=== PATIENT | female | born 1930 | race Hispanic/Latino ===

== ENCOUNTER 2020-09-02 14:20 | Emergency (ER) | payer MEDICARE, MEDICAID ==
[~2020-09-02] VITALS: Ht 147.3 cm; Wt 70.9 kg
[2020-09-02] MEDS ORDERED: RISP0.5T21 PO (14:49)
[2020-09-02] MEDS ORDERED: MIRA3350 PO (14:49)
[2020-09-02] MEDS ORDERED: METO25TA4 PO (14:49)
[2020-09-02] MEDS ORDERED: JANU25TA PO (14:49)
[2020-09-02] MEDS ORDERED: ASPI81CH33 PO (14:49)
[2020-09-02] MEDS ORDERED: FOLI1TAB11 PO (14:49)
[2020-09-02] MEDS ORDERED: LIPI20TA PO (14:49)
[2020-09-02] MEDS ORDERED: RANO500T7 PO (14:49)
[2020-09-02] MEDS ORDERED: D3 +TAB PO (14:49)
[2020-09-02] MEDS ORDERED: LACT20EL PO (14:49)
[2020-09-02] MEDS ORDERED: NIFE1TAB51 PO (14:49)
[2020-09-02] MEDS ORDERED: LEVO88TA3 PO (14:49)
[2020-09-02] MEDS ORDERED: ALBU83IN NEB (14:50)
[2020-09-02] MEDS ORDERED: IPRA2IN NEB (14:50)
--- NOTE | 2020-09-02 15:32 | REP ---
INDICATION: trauma. COMPARISON: None. TECHNIQUE: Three views. FINDINGS: There is diffuse osteopenia. The left glenohumeral and acromioclavicular joints are normally aligned. No fracture or subluxation is seen. Periarticular soft tissues are unremarkable. The thoracic aorta is calcific and tortuous. No left rib fracture or lesion is seen. IMPRESSION: Diffuse osteopenia. No acute abnormality. <Electronically signed by Richie Tran > 09/02/20 [id number]
--- NOTE | 2020-09-02 15:33 | REP ---
INDICATION: trauma. COMPARISON: None. TECHNIQUE: Four views. FINDINGS: Four views of the left elbow demonstrate mild coronoid process spurring. Bones, joints and soft tissues are otherwise unremarkable. There is no evidence of fracture, subluxation, or joint effusion.. . No opaque foreign body noted. IMPRESSION: Mild coronoid process spurring. Otherwise negative left elbow. No fracture seen.. <Electronically signed by Richie Tran > 09/02/20 [id number]
--- NOTE | 2020-09-02 15:34 | REP ---
INDICATION: trauma. COMPARISON: None. TECHNIQUE: Left ribs four views. Single AP view of the chest, patient supine. FINDINGS: Left ribs: There is no rib fracture or other rib abnormality. PA chest: There is no pneumothorax, hemothorax or pulmonary contusion. The lung vogel are clear. The cardiac size is normal. The martin, mediastinum, and skeletal structures are unremarkable. IMPRESSION: Negative left rib series Negative AP chest, patient supine. <Electronically signed by Cole Navarrete > 09/02/20 [id number]
[2020-09-02] MEDS ORDERED: ACETAMINOPHEN TAB 650MG DOSE (2X325MG) PO ONE (16:30)
[2020-09-02 17:02] VITALS: BP 132/76
== END 2020-09-02 17:15 | disposition home or self-care (01) ==
LOC: M ED 14:20
DX: T14.8XXA Other injury of unspecified body region, initial encounter (principal); W19.XXXA Unspecified fall, initial encounter; Y92.099 Unspecified place in other non-institutional residence as the place of occurrence of the external cause; Y93.9 Activity, unspecified; Y99.9 Unspecified external cause status; E11.9 Type 2 diabetes mellitus without complications; I10 Essential (primary) hypertension; J44.9 Chronic obstructive pulmonary disease, unspecified; E78.5 Hyperlipidemia, unspecified; K59.00 Constipation, unspecified; F03.90 Unspecified dementia, unspecified severity, without behavioral disturbance, psychotic disturbance, mood disturbance, and anxiety; Z79.82 Long term (current) use of aspirin; Z79.899 Other long term (current) drug therapy; Z88.0 Allergy status to penicillin

== ENCOUNTER 2021-01-06 11:53 | Emergency (ER) | payer MEDICARE, MEDICAID ==
[~2021-01-06] VITALS: Ht 147.3 cm; Wt 70.9 kg
[~2021-01-06 11:53] MED LIST: ALBU83IN NEB; ASPI81CH33 PO; D3 +TAB PO; FOLI1TAB11 PO; IPRA2IN NEB; JANU25TA PO; LACT20EL PO; LEVO88TA3 PO; LIPI20TA PO; METO25TA4 PO; MIRA3350 PO; NIFE1TAB51 PO; RANO500T7 PO; RISP0.5T21 PO
[2021-01-06] MEDS ORDERED: QUET25TA3 PO (12:36)
[2021-01-06] MEDS ORDERED: MORPHINE 2 MG/ML 1ML VIAL (J2270) IM ONE (15:05)
--- NOTE | 2021-01-06 15:34 | REP ---
INDICATION: trauma, frontal. COMPARISON: None. TECHNIQUE: Axial CT images with multiplanar reformations. FINDINGS: No acute bleed or fracture. Ventricles, cisterns and sulci are within normal limits. No mass effect or midline shift. No abnormal fluid collections. Paranasal sinuses and mastoid air cells are clear Age-related volume loss noted. IMPRESSION: No acute findings. <Electronically signed by Mitch Laughlin > 01/06/21 [id number]
--- NOTE | 2021-01-06 15:36 | REP ---
INDICATION: fall, trauma. COMPARISON: None. TECHNIQUE: Axial CT images with multiplanar reformations. FINDINGS: No evidence of fracture or malalignment. Prevertebral soft tissues within normal limits. There is no significant canal stenosis. No significant osseous foraminal narrowing noted. IMPRESSION: No acute findings. <Electronically signed by Mitch Laughlin > 01/06/21 [id number]
--- NOTE | 2021-01-06 15:45 | REP ---
INDICATION: trauma. COMPARISON: None. TECHNIQUE: Three views of the right humerus are obtained. FINDINGS: Three views of the right humerus demonstrate a anterior inferior glenohumeral dislocation. There is diffuse osteoporosis. Osteoarthritis is seen at the AC joint with narrowing and spur formation. No fracture is apparent.. . No opaque foreign body noted. IMPRESSION: Anterior inferior glenohumeral dislocation on the right. Osteopenia. AC joint osteoarthritis. No acute fracture visible.. <Electronically signed by Richie Tran > 01/06/21 [id number]
--- NOTE | 2021-01-06 15:47 | REP ---
INDICATION: trauma. COMPARISON: None. TECHNIQUE: AP and tube angled views of the right clavicle are obtained. FINDINGS: There is an anterior inferior right glenohumeral dislocation. No observable fracture is seen. The clavicle appears intact. There is osteoarthritic hypertrophy at the AC joint. There is diffuse osteopenia. IMPRESSION: Anterior inferior glenohumeral dislocation on the right. Diffuse osteopenia. No acute fracture is seen. AC joint osteoarthritis. <Electronically signed by Richie Tran > 01/06/21 [id number]
[2021-01-06] MEDS ORDERED: NS 500 ML IV ONE (16:20)
[2021-01-06] MEDS ORDERED: NS 1,000 ML IV SCH ×2 (16:20)
[2021-01-06] MEDS ORDERED: propofoL 200 MG/20 ML VIAL IV PRN (16:20)
[2021-01-06] MEDS: propofoL 200 MG/20 ML VIAL IV PRN ×3 (16:59→17:03)
--- NOTE | 2021-01-06 17:46 | REP ---
INDICATION: post reduction of right shoulder. COMPARISON: Comparison is made with earlier humerus radiographs and clavicle radiographs demonstrating and anterior inferior glenohumeral dislocation.. TECHNIQUE: AP and tangential scapular views are presented. FINDINGS: Current right shoulder views demonstrate normal alignment of the glenohumeral and acromioclavicular joints. There is diffuse osteoporosis. No fracture is seen. IMPRESSION: Right glenohumeral joint is reduced. No fracture is seen. <Electronically signed by Richie Tran > 01/06/21 [id number]
[2021-01-06 18:15] VITALS: BP 171/90
== END 2021-01-06 18:38 | disposition home or self-care (01) ==
LOC: M ED 11:53 → EDBD 11:53 → M ED 18:38
DX: S43.004A Unspecified dislocation of right shoulder joint, initial encounter (principal); W18.40XA Slipping, tripping and stumbling without falling, unspecified, initial encounter; Y92.009 Unspecified place in unspecified non-institutional (private) residence as the place of occurrence of the external cause; Y93.89 Activity, other specified; Y99.9 Unspecified external cause status; F03.90 Unspecified dementia, unspecified severity, without behavioral disturbance, psychotic disturbance, mood disturbance, and anxiety; I25.10 Atherosclerotic heart disease of native coronary artery without angina pectoris; I10 Essential (primary) hypertension; Z85.528 Personal history of other malignant neoplasm of kidney; Z85.51 Personal history of malignant neoplasm of bladder; E11.9 Type 2 diabetes mellitus without complications; E03.9 Hypothyroidism, unspecified; M85.821 Other specified disorders of bone density and structure, right upper arm; M19.011 Primary osteoarthritis, right shoulder; Z79.82 Long term (current) use of aspirin; Z79.899 Other long term (current) drug therapy; Z88.0 Allergy status to penicillin
CPT/HCPCS: 23655; 70450; 72125; 73000; 73020; 73060; 96372; 99285; J2270

== ENCOUNTER → 2021-01-10 | Outpatient (CLI) | payer MEDICARE, MEDICAID ==
[~2021-01-10] MED LIST changes: +QUET25TA3 PO
--- NOTE | 2021-01-10 14:39 | REP ---
INDICATION: DISLOCATION. COMPARISON: 01/06/2021 TECHNIQUE: Single axillary view of the right shoulder FINDINGS: Age-related osteopenia and arthritic changes are appreciated. There is no evidence for dislocation or obvious fracture. IMPRESSION: Osteopenia and degenerative changes. No evidence for dislocation. No fracture. <Electronically signed by Onofre Gomez > 01/10/21 [id number]
== END ==
LOC: M SOG 13:27
PROVIDERS: ATTEND Orthopaedic Surgery Sports Medicine
DX: M19.011 Primary osteoarthritis, right shoulder (principal); M85.811 Other specified disorders of bone density and structure, right shoulder

== ENCOUNTER 2021-02-15 14:30 | Outpatient (RCR) | payer MEDICARE, MEDICAID | END 2021-02-20 | LOC: M PT 14:30 | PROVIDERS: ATTEND Orthopaedic Surgery Sports Medicine | DX: M79.4 Hypertrophy of (infrapatellar) fat pad (principal) ==

== ENCOUNTER → 2021-02-21 | Outpatient (CLI) | payer MEDICARE, MEDICAID ==
--- NOTE | 2021-02-21 12:21 | REP ---
INDICATION: PAIN. COMPARISON: None. TECHNIQUE: AP, lateral, bilateral oblique, tunneled and sunrise views right knee FINDINGS: Age-related osteopenia and advanced tricompartmental osteoarthritic degenerative changes are appreciated including osteophytosis, chondrocalcinosis, and joint space narrowing. No acute fracture or dislocation. No obvious effusion. IMPRESSION: Osteopenia and advanced tricompartmental osteoarthritic degenerative changes. <Electronically signed by Onofre Gomez > 02/21/21 [id number]
== END ==
LOC: M SOG 10:52
PROVIDERS: ATTEND Orthopaedic Surgery Sports Medicine
DX: M17.11 Unilateral primary osteoarthritis, right knee (principal); M85.861 Other specified disorders of bone density and structure, right lower leg

== ENCOUNTER → 2021-03-22 | Outpatient (RCR) | payer MEDICARE, MEDICAID | LOC: M PT 02-22 13:26 → M OT 02-22 13:45 → M PT 03-02 13:00 → M OT 03-07 10:24 → M PT 03-07 10:25 → M OT 03-14 10:19 → M PT 03-14 10:20 → M OT 03-16 10:30 → M PT 03-16 11:00 → M OT 10:27 | PROVIDERS: ATTEND Orthopaedic Surgery Sports Medicine | DX: M79.4 Hypertrophy of (infrapatellar) fat pad (principal) ==

== ENCOUNTER → 2021-04-24 | Outpatient (CLI) | payer MEDICARE, MEDICAID ==
--- NOTE | 2021-04-24 14:18 | REP ---
INDICATION: PAIN IN LEFT KNEE. COMPARISON: Right knee x-ray, 02/21/2021. Left knee x-ray, same day. TECHNIQUE: Standing AP view both knees was obtained. FINDINGS: There is moderate arthritis of the medial joint space compartment of both knees. There is mild arthritis of the lateral joint space compartments of both knees. There is chondrocalcinosis of the medial and lateral menisci, bilaterally. IMPRESSION: 1. Arthritis of the medial and lateral joint space compartments of both knees, as described. 2. 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 <Electronically signed by Jonathan Mooney > 04/24/21 [id number]
--- NOTE | 2021-04-24 14:21 | REP ---
INDICATION: PAIN. COMPARISON: Standing frontal view of both knees, same day. TECHNIQUE: Lateral and sunrise views of the left knee were obtained. FINDINGS: Images are reviewed along with the standing frontal view of both knees, performed the same day. There is moderate arthritis of the medial joint space compartment of the knee. There is mild arthritis of the patellofemoral joint and the lateral joint space compartment of the knee. There is no knee joint effusion. There is enthesopathy of the patella. There are vascular calcifications in the distal thigh and proximal calf. IMPRESSION: 1. Mild to moderate tricompartment arthritis without knee joint effusion. 2. Enthesopathy of the patella. 3. Vascular calcifications. <Electronically signed by Jonathan Mooney > 04/24/21 [id number]
== END ==
LOC: M SOG 13:28
PROVIDERS: ATTEND Orthopaedic Surgery Adult Reconstructive Orthopaedic Surgery
DX: M25.562 Pain in left knee (principal)

== ENCOUNTER 2021-09-03 21:05 | Inpatient (IN) | payer MEDICARE, MEDICAID ==
[~2021-09-03] VITALS: Ht 149.9 cm; Wt 72.0 kg
[~2021-09-03 21:05] MED LIST changes: +QUET1TAB17 PO; -QUET25TA3 PO
[2021-09-03] MEDS ORDERED: METOPROLOL TART 25 MG TABLET PO ONE (22:15)
[2021-09-03 22:59] LABS: BASO % 0.3 % (0.0-1.0); EOS # 0.1 10^3/uL (0.0-0.5); EOS % 1.8 % (0.0-3.0); HEMATOCRIT 34.8 % (36.0-47.0); HEMOGLOBIN 11.6 g/dl (12.0-15.5); LYMPH # 1.8 10^3/uL (1.5-5.0); LYMPH % 29.5 % (24.0-44.0); MEAN CORPUSCULAR HEMOGLOBIN 31.8 pg (27.0-33.0); MEAN CORPUSCULAR HGB CONC 33.3 g/dl (32.0-36.5); MEAN CORPUSCULAR VOLUME 95.3 fl (80.0-96.0); MONO # 0.6 10^3/uL (0.0-0.8); NEUTROPHILS # 3.6 10^3/uL (1.5-8.5); NEUTROPHILS % 59.1 % (36.0-66.0); PLATELET COUNT, AUTOMATED 237 10^3/uL (150-450); RED BLOOD COUNT 3.65 10^6/uL (4.00-5.40); WHITE BLOOD COUNT 6.1 10^3/uL (4.0-10.0)
[2021-09-03 23:31] LABS: ALBUMIN 3.6 GM/DL (3.2-5.2); BILIRUBIN,DIRECT 0.1 MG/DL (0.0-0.2); BILIRUBIN,TOTAL 0.3 MG/DL (0.2-1.0); CALCIUM LEVEL 9.2 MG/DL (8.8-10.2); CREATININE FOR GFR 2.45 MG/DL (0.55-1.30); FREE T4 1.22 NG/DL (0.76-1.46); GLOMERULAR FILTRATION RATE 19.8 (>32); POTASSIUM SERUM 4.6 MEQ/L (3.5-5.1); THYROID STIMULATING HORMONE 0.668 uIU/ML (0.358-3.740); TOTAL PROTEIN 6.6 GM/DL (6.4-8.2)
[2021-09-03 23:34] LABS: CK-MB VALUE MASS 1.1 NG/ML (<3.6); MB/CK RELATIVE INDEX 1.53 (< OR =4)
[2021-09-03] MEDS ORDERED: LABETALOL 100MG/20ML VIAL IV STA (23:40)
[2021-09-03] MEDS ORDERED: ASPIRIN 81 MG CHEW TABLET PO ONE (23:45)
[2021-09-03] MEDS ORDERED: HEPARIN SOD (PORCINE) 5000UNITS/ML 1ML VIAL/SYRINGE IV ONE (23:50)
[2021-09-03] MEDS ORDERED: CLOPIDOGREL 300 MG TAB (PLAVIX) PO ONE (23:50)
[2021-09-03] MEDS ORDERED: HEPARIN DRIP 25,000 UNITS in IV 1 EA IV SCH (23:50)
[2021-09-04 00:53] LABS: INR 1.02; PROTHROMBIN TIME 13.8 SECONDS (12.7-14.5)
[2021-09-04 01:53] LABS: RSV AMPLIFICATION NEGATIVE (NEGATIVE)
[2021-09-04 02:07] LABS: CK-MB VALUE MASS 1.4 NG/ML (<3.6); MB/CK RELATIVE INDEX 2.46 (< OR =4)
[2021-09-04] MEDS ORDERED: CARVedilol 12.5 MG TAB PO ONE (02:35)
[2021-09-04] MEDS ORDERED: hydrALAZINE 20MG/ML 1ML VIAL (J0360 PER 20MG) IV ONE (02:45)
[2021-09-04] MEDS ORDERED: EQL50TAB2 PO (03:03)
[2021-09-04] MEDS ORDERED: NEXI20CA PO (03:03)
[2021-09-04] MEDS ORDERED: ASPI81TA26 PO (03:03)
[2021-09-04] MEDS ORDERED: QUET50TA4 PO (03:03)
[2021-09-04] MEDS ORDERED: MELA5CAP2 PO (03:03)
[2021-09-04] MEDS ORDERED: NIFE30TA50 PO (03:03)
[2021-09-04] MEDS ORDERED: HOME MED LIST COMPLETE! XX SCH (03:05)
[2021-09-04] MEDS ORDERED: MOM 30ML SUSPENSION UDC PO PRN (03:55)
[2021-09-04] MEDS ORDERED: MAALOX 30 ML SUSP *UDC PO PRN (03:55)
[2021-09-04] MEDS ORDERED: HEPARIN SOD (PORCINE) 5000UNITS/ML 1ML VIAL/SYRINGE IV PRN (03:55)
[2021-09-04] MEDS ORDERED: HEPARIN DRIP 25,000 UNITS in IV 1 EA IV SCH (04:00)
[2021-09-04] MEDS ORDERED: ALBUTEROL SULFATE 2.5 MG/0.5 ML INH NEB SOLN NEB PRN (05:15)
[2021-09-04] MEDS ORDERED: IPRATROPIUM 0.02% SOLN 0.5MG 2.5ML NEB NEB PRN (05:15)
[2021-09-04 06:00] LABS: BASO % 0.4 % (0.0-1.0); EOS # 0.1 10^3/uL (0.0-0.5); EOS % 1.9 % (0.0-3.0); HEMATOCRIT 32.7 % (36.0-47.0); HEMOGLOBIN 10.9 g/dl (12.0-15.5); LYMPH # 2.9 10^3/uL (1.5-5.0); LYMPH % 42.1 % (24.0-44.0); MEAN CORPUSCULAR HEMOGLOBIN 31.6 pg (27.0-33.0); MEAN CORPUSCULAR HGB CONC 33.3 g/dl (32.0-36.5); MEAN CORPUSCULAR VOLUME 94.8 fl (80.0-96.0); MONO # 0.7 10^3/uL (0.0-0.8); MONO % 9.6 % (2.0-8.0); NEUTROPHILS # 3.2 10^3/uL (1.5-8.5); NEUTROPHILS % 45.6 % (36.0-66.0); PLATELET COUNT, AUTOMATED 239 10^3/uL (150-450); RED BLOOD COUNT 3.45 10^6/uL (4.00-5.40)
[2021-09-04] MEDS: LEVOTHYROXINE 88MCG TABLET (0.088 MG) PO SCH (06:08)
[2021-09-04 06:16] LABS: CK-MB VALUE MASS 1.7 NG/ML (<3.6); MB/CK RELATIVE INDEX 2.88 (< OR =4)
[2021-09-04 06:35] LABS: ALBUMIN 3.5 GM/DL (3.2-5.2); BILIRUBIN,TOTAL 0.4 MG/DL (0.2-1.0); CALCIUM LEVEL 9.3 MG/DL (8.8-10.2); CHOLESTEROL RISK RATIO 3.432 (<5); CREATININE FOR GFR 2.31 MG/DL (0.55-1.30); GLOMERULAR FILTRATION RATE 21.2 (>32); MAGNESIUM LEVEL 2.1 MG/DL (1.8-2.4); POTASSIUM SERUM 4.2 MEQ/L (3.5-5.1); TOTAL PROTEIN 6.1 GM/DL (6.4-8.2)
[2021-09-04] MEDS: NYSTATIN 100,000 UNITS/GM TOPICAL PWD 15 GM TOP SCH (09:00)
[2021-09-04] MEDS: CLOPIDOGREL 75 MG TAB PO SCH (09:20)
[2021-09-04] MEDS: ATORVASTATIN 20 MG TAB PO SCH (09:20)
[2021-09-04] MEDS: METOPROLOL TART 25 MG TABLET PO SCH ×2 (09:21→21:42)
[2021-09-04] MEDS: ASPIRIN 81 MG CHEW TABLET PO SCH (09:21)
[2021-09-04] MEDS: PANTOPRAZOLE 20 MG TAB PO SCH (09:22)
[2021-09-04] MEDS: NIFEdipine 30 MG XL TAB PO SCH (09:22)
[2021-09-04] MEDS ORDERED: hydrALAZINE 20MG/ML 1ML VIAL (J0360 PER 20MG) IV PRN (14:50)
[2021-09-04] MEDS ORDERED: RAMELTEON 8 MG TAB (ROZEREM) PO PRN (16:05)
[2021-09-04] MEDS ORDERED: LIDOCAINE 5% (LIDODERM) PATCH TD ONE (16:05)
[2021-09-04] MEDS ORDERED: **NOTE PATIENT COMMENT** MISC XX SCH (21:00)
[2021-09-04] MEDS: QUEtiapine FUMARATE 50MG TAB PO SCH (21:42)
[2021-09-05 05:38] LABS: BASO % 0.3 % (0.0-1.0); EOS # 0.2 10^3/uL (0.0-0.5); HEMATOCRIT 33.6 % (36.0-47.0); HEMOGLOBIN 11.1 g/dl (12.0-15.5); LYMPH # 2.9 10^3/uL (1.5-5.0); LYMPH % 36.1 % (24.0-44.0); MEAN CORPUSCULAR HEMOGLOBIN 31.1 pg (27.0-33.0); MEAN CORPUSCULAR VOLUME 94.1 fl (80.0-96.0); MONO # 0.5 10^3/uL (0.0-0.8); MONO % 6.7 % (2.0-8.0); NEUTROPHILS # 4.3 10^3/uL (1.5-8.5); NEUTROPHILS % 54.6 % (36.0-66.0); PLATELET COUNT, AUTOMATED 218 10^3/uL (150-450); RED BLOOD COUNT 3.57 10^6/uL (4.00-5.40); WHITE BLOOD COUNT 7.9 10^3/uL (4.0-10.0)
[2021-09-05] MEDS: LEVOTHYROXINE 88MCG TABLET (0.088 MG) PO SCH (06:00)
[2021-09-05 06:32] LABS: ALBUMIN 3.6 GM/DL (3.2-5.2); BILIRUBIN,TOTAL 0.4 MG/DL (0.2-1.0); CALCIUM LEVEL 9.1 MG/DL (8.8-10.2); CREATININE FOR GFR 2.61 MG/DL (0.55-1.30); GLOMERULAR FILTRATION RATE 18.4 (>32); MAGNESIUM LEVEL 2.1 MG/DL (1.8-2.4); POTASSIUM SERUM 4.2 MEQ/L (3.5-5.1); TOTAL PROTEIN 6.5 GM/DL (6.4-8.2)
[2021-09-05] MEDS ORDERED: hydrALAZINE 20MG/ML 1ML VIAL (J0360 PER 20MG) As Ordered ONE (06:33)
[2021-09-05] MEDS: ASPIRIN 81 MG CHEW TABLET PO SCH (08:38)
[2021-09-05] MEDS: CLOPIDOGREL 75 MG TAB PO SCH (08:38)
[2021-09-05] MEDS: PANTOPRAZOLE 20 MG TAB PO SCH (08:38)
[2021-09-05] MEDS: ATORVASTATIN 20 MG TAB PO SCH (08:38)
[2021-09-05] MEDS: METOPROLOL TART 25 MG TABLET PO SCH ×2 (08:39→22:56)
[2021-09-05] MEDS: NIFEdipine 30 MG XL TAB PO SCH (08:39)
[2021-09-05] MEDS ORDERED: hydrALAZINE 20MG/ML 1ML VIAL (J0360 PER 20MG) IV PRN (08:50)
[2021-09-05] MEDS: NYSTATIN 100,000 UNITS/GM TOPICAL PWD 15 GM TOP SCH (09:15)
[2021-09-05] MEDS: amLODIPine 5 MG TAB PO SCH ×2 (09:56→22:56)
[2021-09-05] MEDS: HEPARIN SOD (PORCINE) 5000UNITS/ML 1ML VIAL/SYRINGE SQ SCH ×2 (14:22→22:58)
[2021-09-05 15:54] VITALS: BP 159/74
[2021-09-05 16:19] LABS: PERCENT SATURATION 18.4 % (13.2-45.0)
[2021-09-05 22:00] VITALS: BP 160/74; O2SAT 93
[2021-09-05] MEDS: QUEtiapine FUMARATE 50MG TAB PO SCH (22:56)
[2021-09-05] MEDS: ACETAMINOPHEN TAB 650MG DOSE (2X325MG) PO PRN (22:58)
[2021-09-06] MEDS: LEVOTHYROXINE 88MCG TABLET (0.088 MG) PO SCH (05:43)
[2021-09-06] MEDS: HEPARIN SOD (PORCINE) 5000UNITS/ML 1ML VIAL/SYRINGE SQ SCH ×3 (05:44→20:19)
[2021-09-06 06:00] VITALS: BP_SYST 160; BP_SYST 167; BP_DIAS 63; BP_DIAS 75
[2021-09-06 07:27] LABS: BASO % 0.3 % (0.0-1.0); EOS # 0.2 10^3/uL (0.0-0.5); EOS % 2.6 % (0.0-3.0); HEMATOCRIT 31.5 % (36.0-47.0); HEMOGLOBIN 10.4 g/dl (12.0-15.5); LYMPH # 1.9 10^3/uL (1.5-5.0); LYMPH % 33.6 % (24.0-44.0); MEAN CORPUSCULAR HEMOGLOBIN 31.4 pg (27.0-33.0); MEAN CORPUSCULAR VOLUME 95.2 fl (80.0-96.0); MONO # 0.5 10^3/uL (0.0-0.8); MONO % 8.7 % (2.0-8.0); NEUTROPHILS # 3.2 10^3/uL (1.5-8.5); NEUTROPHILS % 54.6 % (36.0-66.0); PLATELET COUNT, AUTOMATED 229 10^3/uL (150-450); RED BLOOD COUNT 3.31 10^6/uL (4.00-5.40); WHITE BLOOD COUNT 5.8 10^3/uL (4.0-10.0)
[2021-09-06 08:01] LABS: CALCIUM LEVEL 9.4 MG/DL (8.8-10.2); CREATININE FOR GFR 2.63 MG/DL (0.55-1.30); GLOMERULAR FILTRATION RATE 18.2 (>32); MAGNESIUM LEVEL 2.5 MG/DL (1.8-2.4); POTASSIUM SERUM 4.1 MEQ/L (3.5-5.1)
[2021-09-06] MEDS: ASPIRIN 81 MG CHEW TABLET PO SCH (10:07)
[2021-09-06] MEDS: PANTOPRAZOLE 20 MG TAB PO SCH (10:07)
[2021-09-06] MEDS: ATORVASTATIN 20 MG TAB PO SCH (10:08)
[2021-09-06] MEDS: CLOPIDOGREL 75 MG TAB PO SCH (10:08)
[2021-09-06] MEDS: NIFEdipine 30 MG XL TAB PO SCH (10:08)
[2021-09-06] MEDS: METOPROLOL TART 25 MG TABLET PO SCH ×2 (10:08→20:18)
[2021-09-06] MEDS: amLODIPine 5 MG TAB PO SCH ×2 (10:08→20:19)
[2021-09-06] MEDS: NYSTATIN 100,000 UNITS/GM TOPICAL PWD 15 GM TOP SCH (10:09)
[2021-09-06 14:00] VITALS: BP 168/69
[2021-09-06] MEDS: CALAMINE LOTION 177 ML BTL TOP SCH ×2 (16:19→20:19)
[2021-09-06] MEDS: ACETAMINOPHEN TAB 650MG DOSE (2X325MG) PO PRN (20:21)
[2021-09-06] MEDS ORDERED: QUEtiapine FUMARATE 25 MG TAB PO SCH (21:00)
[2021-09-07 00:10] VITALS: O2SAT 95
[2021-09-07] MEDS: HEPARIN SOD (PORCINE) 5000UNITS/ML 1ML VIAL/SYRINGE SQ SCH (05:55)
[2021-09-07] MEDS: LEVOTHYROXINE 88MCG TABLET (0.088 MG) PO SCH (05:55)
[2021-09-07 06:00] VITALS: BP 150/64
[2021-09-07 06:34] LABS: BASO % 0.4 % (0.0-1.0); EOS # 0.1 10^3/uL (0.0-0.5); EOS % 2.6 % (0.0-3.0); HEMATOCRIT 33.9 % (36.0-47.0); LYMPH # 2.4 10^3/uL (1.5-5.0); LYMPH % 45.5 % (24.0-44.0); MEAN CORPUSCULAR HEMOGLOBIN 31.2 pg (27.0-33.0); MEAN CORPUSCULAR HGB CONC 32.4 g/dl (32.0-36.5); MONO # 0.5 10^3/uL (0.0-0.8); MONO % 8.9 % (2.0-8.0); NEUTROPHILS # 2.2 10^3/uL (1.5-8.5); NEUTROPHILS % 42.2 % (36.0-66.0); PLATELET COUNT, AUTOMATED 222 10^3/uL (150-450); RED BLOOD COUNT 3.53 10^6/uL (4.00-5.40); WHITE BLOOD COUNT 5.3 10^3/uL (4.0-10.0)
[2021-09-07 07:00] LABS: CALCIUM LEVEL 9.3 MG/DL (8.8-10.2); CREATININE FOR GFR 2.43 MG/DL (0.55-1.30); MAGNESIUM LEVEL 2.2 MG/DL (1.8-2.4); POTASSIUM SERUM 4.4 MEQ/L (3.5-5.1)
[2021-09-07 09:06] VITALS: BP 152/57
[2021-09-07] MEDS: ASPIRIN 81 MG CHEW TABLET PO SCH (09:06)
[2021-09-07] MEDS: amLODIPine 5 MG TAB PO SCH (09:06)
[2021-09-07] MEDS: ATORVASTATIN 20 MG TAB PO SCH (09:06)
[2021-09-07] MEDS: CALAMINE LOTION 177 ML BTL TOP SCH (09:06)
[2021-09-07] MEDS: PANTOPRAZOLE 20 MG TAB PO SCH (09:06)
[2021-09-07] MEDS: CLOPIDOGREL 75 MG TAB PO SCH (09:06)
[2021-09-07] MEDS: NIFEdipine 30 MG XL TAB PO SCH (09:06)
[2021-09-07] MEDS: METOPROLOL TART 25 MG TABLET PO SCH (09:06)
[2021-09-07] MEDS ORDERED: AMLO1TAB24 PO (10:54)
[2021-09-07] MEDS ORDERED: CLOP75TA2 PO (10:54)
[2021-09-07] MEDS ORDERED: QUET1TAB17 PO (10:54)
== END 2021-09-07 14:20 | disposition home health service (06) | DRG 311 ==
LOC: M ED 21:05 → M ED INP 09-04 03:51 → M MSPAV 09-05 15:56
PROVIDERS: ADMIT Family Medicine; ATTEND Internal Medicine
DX: I24.8 Other forms of acute ischemic heart disease (principal); N17.9 Acute kidney failure, unspecified; I50.32 Chronic diastolic (congestive) heart failure; N18.4 Chronic kidney disease, stage 4 (severe); I16.0 Hypertensive urgency; J44.9 Chronic obstructive pulmonary disease, unspecified; K21.9 Gastro-esophageal reflux disease without esophagitis; E03.9 Hypothyroidism, unspecified; F03.90 Unspecified dementia, unspecified severity, without behavioral disturbance, psychotic disturbance, mood disturbance, and anxiety; D64.9 Anemia, unspecified; Z85.51 Personal history of malignant neoplasm of bladder; Z79.82 Long term (current) use of aspirin; Z79.899 Other long term (current) drug therapy; Z88.0 Allergy status to penicillin; Z87.891 Personal history of nicotine dependence; Z66 Do not resuscitate

== ENCOUNTER 2021-11-01 17:05 | Emergency (ER) | payer MEDICAID, MEDICARE, OTHER ==
[~2021-11-01] VITALS: Ht 147.3 cm; Wt 76.4 kg
[~2021-11-01 17:05] MED LIST changes: +AMLO1TAB24 PO; +ASPI81TA26 PO; +CLOP75TA2 PO; +EQL50TAB2 PO; +MELA5CAP2 PO; +NEXI20CA PO; +NIFE30TA50 PO; +QUET50TA4 PO
[2021-11-01 17:06] VITALS: BP 188/80
== END 2021-11-01 21:40 | disposition left against medical advice (07) ==
LOC: M ED 17:05
DX: Z53.21 Procedure and treatment not carried out due to patient leaving prior to being seen by health care provider (principal)

== ENCOUNTER 2021-11-22 16:10 | Inpatient (IN) | payer MEDICAID, MEDICARE ==
[~2021-11-22] VITALS: Ht 147.3 cm; Wt 74.0 kg
[2021-11-22] MEDS ORDERED: NS 1,000 ML IV SCH (17:05)
[2021-11-22 17:33] LABS: BASO % 0.4 % (0.0-1.0); EOS # 0.2 10^3/uL (0.0-0.5); EOS % 2.7 % (0.0-3.0); HEMATOCRIT 33.8 % (36.0-47.0); LYMPH # 1.4 10^3/uL (1.5-5.0); LYMPH % 24.7 % (24.0-44.0); MEAN CORPUSCULAR HEMOGLOBIN 30.6 pg (27.0-33.0); MEAN CORPUSCULAR HGB CONC 32.5 g/dl (32.0-36.5); MEAN CORPUSCULAR VOLUME 93.9 fl (80.0-96.0); MONO # 0.5 10^3/uL (0.0-0.8); MONO % 8.7 % (2.0-8.0); NEUTROPHILS # 3.6 10^3/uL (1.5-8.5); NEUTROPHILS % 63.1 % (36.0-66.0); PLATELET COUNT, AUTOMATED 207 10^3/uL (150-450); WHITE BLOOD COUNT 5.7 10^3/uL (4.0-10.0)
[2021-11-22 18:04] LABS: ALBUMIN 3.4 GM/DL (3.2-5.2); ALT/SGPT 24 U/L (12-78); BILIRUBIN,DIRECT 0.2 MG/DL (0.0-0.2); BILIRUBIN,TOTAL 0.4 MG/DL (0.2-1.0); BLOOD UREA NITROGEN 30 MG/DL (7-18); CALCIUM LEVEL 8.8 MG/DL (8.8-10.2); CARBON DIOXIDE LEVEL 21 MEQ/L (21-32); CHLORIDE LEVEL 114 MEQ/L (98-107); CREATININE FOR GFR 3.38 MG/DL (0.55-1.30); GLOMERULAR FILTRATION RATE 13.7 (>32); GLUCOSE, FASTING 138 MG/DL (70-100); LIPASE 214 U/L (73-393); MAGNESIUM LEVEL 2.5 MG/DL (1.8-2.4); SODIUM LEVEL 142 MEQ/L (136-145); TOTAL PROTEIN 6.1 GM/DL (6.4-8.2)
[2021-11-22] MEDS ORDERED: GLUCAGON INJ 1MG VIAL SC PRN (19:05)
[2021-11-22] MEDS ORDERED: MOM 30ML SUSPENSION UDC PO PRN (19:05)
[2021-11-22] MEDS ORDERED: MAALOX 30 ML SUSP *UDC PO PRN (19:05)
[2021-11-22] MEDS ORDERED: DEXTROSE 50% 50 ML SYRINGE IV PRN (19:05)
[2021-11-22] MEDS ORDERED: ACETAMINOPHEN TAB 650MG DOSE (2X325MG) PO PRN (19:05)
[2021-11-22] MEDS ORDERED: GLUCOSE 4GM CHEW TABLET PO PRN (19:05)
[2021-11-22] MEDS ORDERED: LABETALOL 100MG/20ML VIAL IV STA (19:23)
[2021-11-22] MEDS ORDERED: D31000CA4 PO (20:09)
[2021-11-22] MEDS ORDERED: SYST1SOL OU (20:09)
[2021-11-22] MEDS ORDERED: ISOS1TAB35 PO (20:09)
[2021-11-22] MEDS ORDERED: LIPI20TA PO (20:09)
[2021-11-22] MEDS ORDERED: QUET50TA4 PO (20:09)
[2021-11-22] MEDS ORDERED: AMLO1TAB24 PO (20:09)
[2021-11-22] MEDS ORDERED: MIRA3350 PO (20:09)
[2021-11-22] MEDS ORDERED: METO25TA4 PO (20:09)
[2021-11-22] MEDS ORDERED: HOME MED LIST COMPLETE! XX SCH (20:10)
[2021-11-22] MEDS ORDERED: IPRATROPIUM 0.02% SOLN 0.5MG 2.5ML NEB NEB PRN (20:15)
[2021-11-22] MEDS: NS 1,000 ML IV SCH (20:46)
[2021-11-22 20:55] LABS: FERRITIN 33 NG/ML (8-252); FREE T4 1.39 NG/DL (0.76-1.46); IRON (FE) 51 UG/DL (50-170); NT-PRO BNP 10562 PG/ML (<450); PERCENT SATURATION 19.2 % (13.2-45.0); THYROID STIMULATING HORMONE 0.195 uIU/ML (0.358-3.740); TOTAL IRON BINDING CAPACITY 266 UG/DL (250-450)
[2021-11-22] MEDS ORDERED: amLODIPine 5 MG TAB PO SCH (21:00)
[2021-11-22] MEDS ORDERED: HumaLOG INSULIN (NovoLOG) PER UNIT SC SCH (21:00)
[2021-11-22 21:04] LABS: RSV AMPLIFICATION NEGATIVE (NEGATIVE)
[2021-11-22] MEDS ORDERED: LORazepam 2 MG/ML VIAL IV ONE (21:20)
[2021-11-22] MEDS ORDERED: FUROSEMIDE 20MG/2ML VIAL (J1940) IV ONE (21:20)
[2021-11-22 21:21] LABS: FOLATE > 24.0 NG/ML; VITAMIN B12 LEVEL 955 PG/ML
[2021-11-22] MEDS: DOCUSATE SODIUM 100MG CAPSULE PO SCH (23:15)
[2021-11-22] MEDS: METOPROLOL TART 12.5 MG PER 1/2 TAB PO SCH (23:16)
[2021-11-22] MEDS: QUEtiapine FUMARATE 50MG TAB PO SCH (23:16)
[2021-11-22] MEDS: ASPIRIN 81MG ENTERIC TABLET PO SCH (23:20)
[2021-11-23 01:30] VITALS: BP 145/91; O2SAT 94
[2021-11-23] MEDS: NS 1,000 ML IV SCH (02:31)
[2021-11-23 06:00] VITALS: BP 167/58
[2021-11-23] MEDS ORDERED: HEPARIN SOD (PORCINE) 5000UNITS/ML 1ML VIAL/SYRINGE SC SCH ×2 (06:00→21:00)
[2021-11-23] MEDS: LEVOTHYROXINE 88MCG TABLET (0.088 MG) PO SCH (06:26)
[2021-11-23] MEDS ORDERED: HumaLOG INSULIN (NovoLOG) PER UNIT SC SCH (07:30)
[2021-11-23] MEDS ORDERED: FUROSEMIDE 40MG/4ML VIAL (J1940) IV SCH (09:00)
[2021-11-23 09:04] LABS: HEMATOCRIT 30.5 % (36.0-47.0); HEMOGLOBIN 9.8 g/dl (12.0-15.5); MEAN CORPUSCULAR HEMOGLOBIN 30.2 pg (27.0-33.0); MEAN CORPUSCULAR HGB CONC 32.1 g/dl (32.0-36.5); MEAN CORPUSCULAR VOLUME 93.8 fl (80.0-96.0); PLATELET COUNT, AUTOMATED 170 10^3/uL (150-450); RED BLOOD COUNT 3.25 10^6/uL (4.00-5.40)
[2021-11-23 09:23] LABS: INR 0.99; PROTHROMBIN TIME 13.5 SECONDS (12.7-14.5)
[2021-11-23 09:30] LABS: CALCIUM LEVEL 8.4 MG/DL (8.8-10.2); CREATININE FOR GFR 2.87 MG/DL (0.55-1.30); GLOMERULAR FILTRATION RATE 16.5 (>32); MAGNESIUM LEVEL 2.3 MG/DL (1.8-2.4); POTASSIUM SERUM 4.6 MEQ/L (3.5-5.1)
[2021-11-23 09:44] LABS: PARTIAL THROMBOPLASTIN TIME 29.5 SECONDS (25.9-37.0)
[2021-11-23] MEDS: PANTOPRAZOLE 20 MG TAB PO SCH (10:15)
[2021-11-23] MEDS: DOCUSATE SODIUM 100MG CAPSULE PO SCH ×2 (10:15→20:47)
[2021-11-23] MEDS: METOPROLOL TART 12.5 MG PER 1/2 TAB PO SCH ×2 (10:15→20:47)
[2021-11-23] MEDS: ISOSORBIDE MON. (IMDUR) 30 MG XR TAB PO SCH (10:15)
[2021-11-23] MEDS: ATORVASTATIN 20 MG TAB PO SCH (10:16)
[2021-11-23] MEDS: POLYVINYL ALCOHOL OPHTH SOLN 15 ML(LIQUITEARS) OU SCH ×3 (10:16→20:48)
[2021-11-23] MEDS: NYSTATIN 100,000 UNITS/GM TOPICAL PWD 15 GM TOP PRN (10:17)
[2021-11-23] MEDS: MIRALAX *UNIT DOSE* 17GM PACKET PO SCH (10:17)
[2021-11-23 11:27] LABS: TOTAL 25(OH) VITAMIN D 56.7 NG/ML (30.0-100.0)
[2021-11-23] MEDS ORDERED: FUROSEMIDE 100MG/10ML VIAL (J1940) IV ONE (13:00)
[2021-11-23 14:00] VITALS: BP 168/71
[2021-11-23] MEDS ORDERED: GI COCKTAIL 50ML BTL(HYOSCYAMINE/MAALOX/LIDOCAINE VISCOUS)(1:3:1) PO ONE (20:10)
[2021-11-23] MEDS: ONDANSETRON 4MG/2ML VIAL IV PRN (20:45)
[2021-11-23] MEDS: ASPIRIN 81MG ENTERIC TABLET PO SCH (20:47)
[2021-11-23] MEDS: QUEtiapine FUMARATE 50MG TAB PO SCH (20:47)
[2021-11-23] MEDS ORDERED: SENNA 8.6 MG TAB (SENOKOT) PO PRN (20:55)
[2021-11-23 21:00] LABS: CK-MB VALUE MASS 3.3 NG/ML (<3.6); MB/CK RELATIVE INDEX 3.44 (< OR =4)
[2021-11-23 21:09] LABS: D-DIMER QUANT 1292.34 ng/ml (<500)
[2021-11-23 21:45] VITALS: BP 192/98
[2021-11-23 21:54] VITALS: BP 165/90
[2021-11-23] MEDS ORDERED: HEPARIN DRIP 25,000 UNITS in IV 1 EA IV SCH (23:05)
[2021-11-23] MEDS ORDERED: HEPARIN SOD (PORCINE) 5000UNITS/ML 1ML VIAL/SYRINGE IV ONE (23:05)
[2021-11-23] MEDS ORDERED: HEPARIN SOD (PORCINE) 5000UNITS/ML 1ML VIAL/SYRINGE IV PRN (23:05)
[2021-11-23 23:31] LABS: HEMATOCRIT 30.7 % (36.0-47.0); HEMOGLOBIN 9.9 g/dl (12.0-15.5); MEAN CORPUSCULAR HEMOGLOBIN 30.5 pg (27.0-33.0); MEAN CORPUSCULAR HGB CONC 32.2 g/dl (32.0-36.5); MEAN CORPUSCULAR VOLUME 94.5 fl (80.0-96.0); PLATELET COUNT, AUTOMATED 181 10^3/uL (150-450); RED BLOOD COUNT 3.25 10^6/uL (4.00-5.40); WHITE BLOOD COUNT 5.6 10^3/uL (4.0-10.0)
[2021-11-23 23:40] LABS: PARTIAL THROMBOPLASTIN TIME 30.3 SECONDS (25.9-37.0)
[2021-11-23 23:45] LABS: CK-MB VALUE MASS 3.1 NG/ML (<3.6); MB/CK RELATIVE INDEX 3.41 (< OR =4)
[2021-11-24] VITALS (8 sets, daily range): BP systolic 162–200; BP diastolic 74–92
[2021-11-24] MEDS ORDERED: RAMELTEON 8 MG TAB (ROZEREM) PO PRN (01:30)
[2021-11-24] MEDS: hydrOXYzine 25 MG TAB PO PRN (01:42)
[2021-11-24] MEDS: BENZONATATE 100MG CAPSULE PO PRN ×2 (01:43→18:15)
[2021-11-24 02:51] LABS: MB/CK RELATIVE INDEX 3.3 (< OR =4)
[2021-11-24] MEDS: LEVOTHYROXINE 88MCG TABLET (0.088 MG) PO SCH (06:40)
[2021-11-24 07:10] LABS: HEMATOCRIT 28.9 % (36.0-47.0); HEMOGLOBIN 9.1 g/dl (12.0-15.5); MEAN CORPUSCULAR HEMOGLOBIN 29.6 pg (27.0-33.0); MEAN CORPUSCULAR HGB CONC 31.5 g/dl (32.0-36.5); MEAN CORPUSCULAR VOLUME 94.1 fl (80.0-96.0); PLATELET COUNT, AUTOMATED 167 10^3/uL (150-450); RED BLOOD COUNT 3.07 10^6/uL (4.00-5.40); WHITE BLOOD COUNT 5.8 10^3/uL (4.0-10.0)
[2021-11-24 07:36] LABS: CK-MB VALUE MASS 2.8 NG/ML (<3.6); MB/CK RELATIVE INDEX 3.46 (< OR =4)
[2021-11-24 07:59] LABS: CALCIUM LEVEL 8.2 MG/DL (8.8-10.2); CREATININE FOR GFR 2.81 MG/DL (0.55-1.30); GLOMERULAR FILTRATION RATE 16.9 (>32); MAGNESIUM LEVEL 2.1 MG/DL (1.8-2.4); POTASSIUM SERUM 4.7 MEQ/L (3.5-5.1)
[2021-11-24] MEDS: MIRALAX *UNIT DOSE* 17GM PACKET PO SCH (09:00)
[2021-11-24] MEDS: DOCUSATE SODIUM 100MG CAPSULE PO SCH ×2 (09:00→21:00)
[2021-11-24] MEDS: ATORVASTATIN 20 MG TAB PO SCH (10:27)
[2021-11-24] MEDS: ACETAMINOPHEN TAB 650MG DOSE (2X325MG) PO SCH ×3 (10:28→22:20)
[2021-11-24] MEDS: PANTOPRAZOLE 20 MG TAB PO SCH (10:28)
[2021-11-24] MEDS: METOPROLOL TART 12.5 MG PER 1/2 TAB PO SCH ×2 (10:29→22:19)
[2021-11-24] MEDS: ISOSORBIDE MON. (IMDUR) 30 MG XR TAB PO SCH (10:29)
[2021-11-24] MEDS: FUROSEMIDE 100MG/10ML VIAL (J1940) IV SCH ×2 (11:04→18:09)
[2021-11-24] MEDS: **hydrALAZINE HCL** 25 MG TAB PO SCH ×3 (11:12→23:42)
[2021-11-24] MEDS: POLYVINYL ALCOHOL OPHTH SOLN 15 ML(LIQUITEARS) OU SCH ×3 (13:40→22:21)
[2021-11-24] MEDS: amLODIPine 5 MG TAB PO SCH ×2 (13:45→22:21)
[2021-11-24] MEDS ORDERED: cloNIDine 0.2 MG TAB PO ONE (16:00)
[2021-11-24] MEDS: ASPIRIN 81MG ENTERIC TABLET PO SCH (22:20)
[2021-11-24] MEDS: QUEtiapine FUMARATE 50MG TAB PO SCH (22:20)
[2021-11-24] MEDS: HEPARIN SOD (PORCINE) 5000UNITS/ML 1ML VIAL/SYRINGE SQ SCH (22:21)
[2021-11-25 05:10] VITALS: BP 190/80
[2021-11-25] MEDS: LEVOTHYROXINE 88MCG TABLET (0.088 MG) PO SCH (05:26)
[2021-11-25] MEDS: **hydrALAZINE HCL** 25 MG TAB PO SCH (05:26)
[2021-11-25 06:00] LABS: HEMATOCRIT 29.8 % (36.0-47.0); HEMOGLOBIN 9.3 g/dl (12.0-15.5); MEAN CORPUSCULAR HEMOGLOBIN 29.9 pg (27.0-33.0); MEAN CORPUSCULAR HGB CONC 31.2 g/dl (32.0-36.5); MEAN CORPUSCULAR VOLUME 95.8 fl (80.0-96.0); PLATELET COUNT, AUTOMATED 156 10^3/uL (150-450); RED BLOOD COUNT 3.11 10^6/uL (4.00-5.40); WHITE BLOOD COUNT 4.4 10^3/uL (4.0-10.0)
[2021-11-25 06:19] LABS: CALCIUM LEVEL 8.1 MG/DL (8.8-10.2); CREATININE FOR GFR 2.98 MG/DL (0.55-1.30); GLOMERULAR FILTRATION RATE 15.8 (>32); MAGNESIUM LEVEL 2.2 MG/DL (1.8-2.4); POTASSIUM SERUM 4.7 MEQ/L (3.5-5.1)
[2021-11-25 07:47] VITALS: BP 153/74
[2021-11-25] MEDS: ACETAMINOPHEN TAB 650MG DOSE (2X325MG) PO SCH ×4 (09:00→20:52)
[2021-11-25] MEDS: PANTOPRAZOLE 20 MG TAB PO SCH (10:08)
[2021-11-25] MEDS: DOCUSATE SODIUM 100MG CAPSULE PO SCH ×2 (10:08→20:51)
[2021-11-25] MEDS: cloNIDine 0.1MG TABLET PO SCH ×3 (10:09→20:56)
[2021-11-25] MEDS: ISOSORBIDE MON. (IMDUR) 30 MG XR TAB PO SCH (10:09)
[2021-11-25] MEDS: ATORVASTATIN 20 MG TAB PO SCH (10:09)
[2021-11-25] MEDS: MIRALAX *UNIT DOSE* 17GM PACKET PO SCH (10:10)
[2021-11-25] MEDS: METOPROLOL TART 12.5 MG PER 1/2 TAB PO SCH ×2 (10:10→20:53)
[2021-11-25] MEDS: amLODIPine 5 MG TAB PO SCH ×2 (10:10→20:52)
[2021-11-25] MEDS: POLYVINYL ALCOHOL OPHTH SOLN 15 ML(LIQUITEARS) OU SCH ×3 (10:11→20:51)
[2021-11-25] MEDS: HEPARIN SOD (PORCINE) 5000UNITS/ML 1ML VIAL/SYRINGE SQ SCH ×2 (10:11→20:51)
[2021-11-25 10:31] VITALS: BP 190/76
[2021-11-25] MEDS: **hydrALAZINE** 50 MG TAB PO SCH ×2 (12:24→17:57)
[2021-11-25 14:00] VITALS: BP 164/66
[2021-11-25] MEDS: BENZONATATE 100MG CAPSULE PO PRN (17:57)
[2021-11-25 19:40] VITALS: BP 180/80
[2021-11-25] MEDS: ASPIRIN 81MG ENTERIC TABLET PO SCH (20:51)
[2021-11-25] MEDS ORDERED: CHLORASEPTIC SPRAY MT PRN (21:10)
[2021-11-25] MEDS: QUEtiapine FUMARATE 50MG TAB PO SCH (21:11)
[2021-11-26] MEDS: guaiFENesin ER 600 MG TAB PO PRN (00:17)
[2021-11-26] MEDS: **hydrALAZINE** 50 MG TAB PO SCH ×4 (00:17→17:51)
[2021-11-26 04:32] VITALS: BP 170/80
[2021-11-26] MEDS: LEVOTHYROXINE 88MCG TABLET (0.088 MG) PO SCH (05:59)
[2021-11-26 06:24] LABS: HEMOGLOBIN 9.6 g/dl (12.0-15.5); MEAN CORPUSCULAR HEMOGLOBIN 30.4 pg (27.0-33.0); MEAN CORPUSCULAR VOLUME 94.9 fl (80.0-96.0); PLATELET COUNT, AUTOMATED 186 10^3/uL (150-450); RED BLOOD COUNT 3.16 10^6/uL (4.00-5.40); WHITE BLOOD COUNT 5.7 10^3/uL (4.0-10.0)
[2021-11-26 06:41] LABS: CALCIUM LEVEL 8.3 MG/DL (8.8-10.2); CREATININE FOR GFR 3.45 MG/DL (0.55-1.30); GLOMERULAR FILTRATION RATE 13.3 (>32); MAGNESIUM LEVEL 2.3 MG/DL (1.8-2.4)
[2021-11-26] MEDS ORDERED: NS 1,000 ML IV ONE (08:00)
[2021-11-26] MEDS: ACETAMINOPHEN TAB 650MG DOSE (2X325MG) PO SCH ×3 (09:00→20:05)
[2021-11-26 09:30] VITALS: BP 190/80
[2021-11-26] MEDS: MIRALAX *UNIT DOSE* 17GM PACKET PO SCH (09:49)
[2021-11-26] MEDS: HEPARIN SOD (PORCINE) 5000UNITS/ML 1ML VIAL/SYRINGE SQ SCH ×2 (09:49→20:08)
[2021-11-26] MEDS: cloNIDine 0.1MG TABLET PO SCH ×3 (09:50→20:06)
[2021-11-26] MEDS: METOPROLOL TART 12.5 MG PER 1/2 TAB PO SCH ×2 (09:50→20:05)
[2021-11-26] MEDS: PANTOPRAZOLE 20 MG TAB PO SCH (09:51)
[2021-11-26] MEDS: DOCUSATE SODIUM 100MG CAPSULE PO SCH ×2 (09:51→20:04)
[2021-11-26] MEDS: ISOSORBIDE MON. (IMDUR) 30 MG XR TAB PO SCH (09:51)
[2021-11-26] MEDS: ATORVASTATIN 20 MG TAB PO SCH (09:51)
[2021-11-26] MEDS: amLODIPine 5 MG TAB PO SCH ×2 (09:52→20:06)
[2021-11-26] MEDS: POLYVINYL ALCOHOL OPHTH SOLN 15 ML(LIQUITEARS) OU SCH ×3 (09:52→20:08)
[2021-11-26] MEDS: ONDANSETRON 4MG/2ML VIAL IV PRN (10:19)
[2021-11-26] MEDS ORDERED: METOCLOPRAMIDE INJ 10MG/2ML VIAL (J2765 PER 1) IV ONE (12:40)
[2021-11-26 14:00] VITALS: BP 153/76
[2021-11-26] MEDS: BENZONATATE 100MG CAPSULE PO PRN (14:09)
[2021-11-26 16:15] VITALS: BP 186/76
[2021-11-26 19:19] VITALS: BP 204/84
[2021-11-26] MEDS: ASPIRIN 81MG ENTERIC TABLET PO SCH (20:04)
[2021-11-26] MEDS: QUEtiapine FUMARATE 25 MG TAB PO SCH (20:05)
[2021-11-26 22:00] VITALS: BP 132/67
[2021-11-26] MEDS ORDERED: MAGIC MOUTHWASH SUSPENSION BTL SS ONE (23:15)
[2021-11-27] MEDS ORDERED: carisoprodoL 350 MG TAB PO ONE (00:40)
[2021-11-27] MEDS: guaiFENesin ER 600 MG TAB PO PRN ×2 (00:55→15:37)
[2021-11-27] MEDS: BENZONATATE 100MG CAPSULE PO PRN ×3 (00:55→21:21)
[2021-11-27] MEDS: SALIVA SUBSTITUTE(MOUTHKOTE) BTL MT PRN ×2 (00:56→09:51)
[2021-11-27] MEDS: LIDOCAINE 5% (LIDODERM) PATCH TD SCH ×2 (01:14→21:23)
[2021-11-27] MEDS: LEVOTHYROXINE 88MCG TABLET (0.088 MG) PO SCH (05:27)
[2021-11-27] MEDS: **hydrALAZINE** 50 MG TAB PO SCH ×2 (05:28)
[2021-11-27] MEDS ORDERED: carisoprodoL 350 MG TAB PO PRN (05:55)
[2021-11-27 06:00] VITALS: BP 190/70
[2021-11-27] MEDS ORDERED: cloNIDine 0.1MG TABLET PO SCH (06:00)
[2021-11-27] MEDS: hydrOXYzine 25 MG TAB PO PRN (06:10)
[2021-11-27 07:34] LABS: HEMATOCRIT 30.3 % (36.0-47.0); HEMOGLOBIN 9.5 g/dl (12.0-15.5); MEAN CORPUSCULAR HEMOGLOBIN 30.3 pg (27.0-33.0); MEAN CORPUSCULAR HGB CONC 31.4 g/dl (32.0-36.5); MEAN CORPUSCULAR VOLUME 96.5 fl (80.0-96.0); PLATELET COUNT, AUTOMATED 196 10^3/uL (150-450); RED BLOOD COUNT 3.14 10^6/uL (4.00-5.40); WHITE BLOOD COUNT 6.4 10^3/uL (4.0-10.0)
[2021-11-27 07:54] LABS: CALCIUM LEVEL 8.3 MG/DL (8.8-10.2); CREATININE FOR GFR 3.77 MG/DL (0.55-1.30); MAGNESIUM LEVEL 2.4 MG/DL (1.8-2.4); POTASSIUM SERUM 4.7 MEQ/L (3.5-5.1)
[2021-11-27 08:12] VITALS: BP 170/70
[2021-11-27] MEDS: NYSTATIN 100,000 UNITS/GM TOPICAL PWD 15 GM TOP PRN (09:51)
[2021-11-27] MEDS: POLYVINYL ALCOHOL OPHTH SOLN 15 ML(LIQUITEARS) OU SCH ×3 (09:51→22:33)
[2021-11-27] MEDS: DOCUSATE SODIUM 100MG CAPSULE PO SCH (09:52)
[2021-11-27] MEDS: METOPROLOL TART 12.5 MG PER 1/2 TAB PO SCH ×2 (09:52→21:00)
[2021-11-27] MEDS: ATORVASTATIN 20 MG TAB PO SCH (09:52)
[2021-11-27] MEDS: ACETAMINOPHEN TAB 650MG DOSE (2X325MG) PO SCH (09:52)
[2021-11-27] MEDS: ISOSORBIDE MON. (IMDUR) 30 MG XR TAB PO SCH (09:52)
[2021-11-27 09:53] VITALS: BP 210/82
[2021-11-27] MEDS: PANTOPRAZOLE 20 MG TAB PO SCH (09:53)
[2021-11-27] MEDS: **NOTE PATIENT COMMENT** MISC XX SCH (09:53)
[2021-11-27] MEDS: MIRALAX *UNIT DOSE* 17GM PACKET PO SCH (09:53)
[2021-11-27] MEDS: HEPARIN SOD (PORCINE) 5000UNITS/ML 1ML VIAL/SYRINGE SQ SCH (09:53)
[2021-11-27] MEDS: amLODIPine 5 MG TAB PO SCH ×2 (09:53→21:00)
[2021-11-27] MEDS ORDERED: ACETAMINOPHEN TAB 650MG DOSE (2X325MG) PO PRN (11:55)
[2021-11-27] MEDS ORDERED: DOCUSATE SODIUM 100MG CAPSULE PO PRN (11:55)
[2021-11-27] MEDS: ALBUTEROL SULFATE 2.5 MG/0.5 ML INH NEB SOLN NEB PRN ×2 (11:57→16:12)
[2021-11-27] MEDS ORDERED: ONDANSETRON 4 MG ORAL DISINTEGRATING TAB PO PRN (12:00)
[2021-11-27] MEDS: HYOSCYAMINE SULFATE 0.125 MG SUBL TABLET PO PRN (15:51)
[2021-11-27] MEDS: ASPIRIN 81MG ENTERIC TABLET PO SCH (21:00)
[2021-11-27] MEDS: QUEtiapine FUMARATE 25 MG TAB PO SCH (21:21)
[2021-11-27] MEDS: SCOPOLAMINE 1MG TRANSDERMAL PATCH TOP SCH (21:22)
[2021-11-27] MEDS: FLUTICASONE PROP 0.05% NASAL SPRAY 16 GM (FLONASE) NARES SCH (22:33)
[2021-11-28] MEDS: ALBUTEROL SULFATE 2.5 MG/0.5 ML INH NEB SOLN NEB PRN ×2 (03:44→20:14)
[2021-11-28] MEDS ORDERED: BENZONATATE 100MG CAPSULE PO ONE (04:00)
[2021-11-28] MEDS: LEVOTHYROXINE 88MCG TABLET (0.088 MG) PO SCH (05:00)
[2021-11-28] MEDS: METOPROLOL TART 12.5 MG PER 1/2 TAB PO SCH (08:56)
[2021-11-28] MEDS: amLODIPine 5 MG TAB PO SCH (08:56)
[2021-11-28] MEDS: PANTOPRAZOLE 20 MG TAB PO SCH (08:56)
[2021-11-28] MEDS: FLUTICASONE PROP 0.05% NASAL SPRAY 16 GM (FLONASE) NARES SCH ×2 (08:56→20:56)
[2021-11-28] MEDS: POLYVINYL ALCOHOL OPHTH SOLN 15 ML(LIQUITEARS) OU SCH ×3 (08:56→20:57)
[2021-11-28] MEDS: ISOSORBIDE MON. (IMDUR) 30 MG XR TAB PO SCH (08:56)
[2021-11-28] MEDS: **NOTE PATIENT COMMENT** MISC XX SCH (08:57)
[2021-11-28] MEDS: BENZONATATE 100MG CAPSULE PO PRN ×2 (09:36→20:57)
[2021-11-28] MEDS: LORazepam 1 MG TAB PO PRN ×3 (09:36→20:57)
[2021-11-28] MEDS: HYOSCYAMINE SULFATE 0.125 MG SUBL TABLET PO PRN (13:38)
[2021-11-28] MEDS: CHLORASEPTIC SPRAY MT PRN ×2 (13:59→20:58)
[2021-11-28] MEDS: QUEtiapine FUMARATE 25 MG TAB PO SCH (20:57)
[2021-11-28] MEDS: LIDOCAINE 5% (LIDODERM) PATCH TD SCH (20:58)
[2021-11-29] MEDS: ALBUTEROL SULFATE 2.5 MG/0.5 ML INH NEB SOLN NEB PRN ×5 (00:14→14:49)
[2021-11-29] MEDS: MORPHINE 10MG/0.5ML ORAL CONCENTRATE SOLUTION U/D SL PRN ×5 (05:47→17:43)
[2021-11-29] MEDS: LORazepam 1 MG TAB PO PRN ×2 (08:10→17:44)
[2021-11-29] MEDS: PANTOPRAZOLE 20 MG TAB PO SCH (09:00)
[2021-11-29] MEDS: FLUTICASONE PROP 0.05% NASAL SPRAY 16 GM (FLONASE) NARES SCH ×2 (09:48→20:43)
[2021-11-29] MEDS: **NOTE PATIENT COMMENT** MISC XX SCH (09:48)
[2021-11-29] MEDS: CHLORASEPTIC SPRAY MT PRN (09:48)
[2021-11-29] MEDS: POLYVINYL ALCOHOL OPHTH SOLN 15 ML(LIQUITEARS) OU SCH ×3 (09:48→20:44)
[2021-11-29] MEDS: BENZONATATE 100MG CAPSULE PO PRN (12:41)
[2021-11-29 14:13] LABS: Methylmalonic Acid 254 nmol/L (0-378)
[2021-11-29] MEDS: QUEtiapine FUMARATE 25 MG TAB PO SCH (20:43)
[2021-11-29] MEDS: LIDOCAINE 5% (LIDODERM) PATCH TD SCH (20:45)
[2021-11-30] MEDS: MORPHINE 10MG/0.5ML ORAL CONCENTRATE SOLUTION U/D SL PRN ×4 (05:13→20:25)
[2021-11-30] MEDS: LORazepam 1 MG TAB PO PRN ×4 (05:14→20:26)
[2021-11-30] MEDS: BENZONATATE 100MG CAPSULE PO PRN (05:22)
[2021-11-30] MEDS: FLUTICASONE PROP 0.05% NASAL SPRAY 16 GM (FLONASE) NARES SCH ×2 (09:22→20:45)
[2021-11-30] MEDS: PANTOPRAZOLE 20 MG TAB PO SCH (09:22)
[2021-11-30] MEDS: POLYVINYL ALCOHOL OPHTH SOLN 15 ML(LIQUITEARS) OU SCH ×3 (09:22→20:46)
[2021-11-30] MEDS: **NOTE PATIENT COMMENT** MISC XX SCH (09:23)
[2021-11-30] MEDS: ALBUTEROL SULFATE 2.5 MG/0.5 ML INH NEB SOLN NEB PRN ×2 (10:57→19:25)
[2021-11-30] MEDS: SCOPOLAMINE 1MG TRANSDERMAL PATCH TOP SCH (20:25)
[2021-11-30] MEDS: LIDOCAINE 5% (LIDODERM) PATCH TD SCH (20:26)
[2021-11-30] MEDS: QUEtiapine FUMARATE 25 MG TAB PO SCH (20:45)
[2021-12-01] MEDS: MORPHINE 10MG/0.5ML ORAL CONCENTRATE SOLUTION U/D SL PRN ×3 (01:57→04:48)
[2021-12-01] MEDS: LORazepam 1 MG TAB PO PRN ×2 (02:19→04:20)
[2021-12-01] MEDS ORDERED: LORazepam 2 MG/ML VIAL IV PRN (04:45)
[2021-12-01] MEDS ORDERED: MORPHINE 10MG/0.5ML ORAL CONCENTRATE SOLUTION U/D SL ONE (05:00)
== END 2021-12-01 07:56 | disposition expired | DRG 682 ==
LOC: M ED 16:10 → M ED INP 19:05 → ENRESERV 22:20 → M MS5PR 11-23 01:31 → M MSPAV 11-23 21:54
PROVIDERS: ADMIT Family Medicine; ATTEND Family Medicine
DX: N17.9 Acute kidney failure, unspecified (principal); I50.33 Acute on chronic diastolic (congestive) heart failure; I13.2 Hypertensive heart and chronic kidney disease with heart failure and with stage 5 chronic kidney disease, or end stage renal disease; N18.5 Chronic kidney disease, stage 5; R62.7 Adult failure to thrive; I16.0 Hypertensive urgency; E03.9 Hypothyroidism, unspecified; J44.9 Chronic obstructive pulmonary disease, unspecified; K21.9 Gastro-esophageal reflux disease without esophagitis; I25.10 Atherosclerotic heart disease of native coronary artery without angina pectoris; E78.5 Hyperlipidemia, unspecified; E11.22 Type 2 diabetes mellitus with diabetic chronic kidney disease; Z51.5 Encounter for palliative care; Z90.5 Acquired absence of kidney; F03.90 Unspecified dementia, unspecified severity, without behavioral disturbance, psychotic disturbance, mood disturbance, and anxiety; D64.9 Anemia, unspecified; K43.9 Ventral hernia without obstruction or gangrene; K57.30 Diverticulosis of large intestine without perforation or abscess without bleeding; R33.9 Retention of urine, unspecified; Z66 Do not resuscitate; R53.1 Weakness; E86.0 Dehydration; F41.9 Anxiety disorder, unspecified; F32.A Depression, unspecified; Z79.899 Other long term (current) drug therapy; Z79.82 Long term (current) use of aspirin; Z88.0 Allergy status to penicillin